=== PATIENT | male | born 1990 | race Caucasian/White ===

== ENCOUNTER 2017-01-18 19:47 | Emergency (ER) | payer OTHER | END 2017-01-18 22:07 | disposition home or self-care (01) | LOC: ER 19:47 | DX: S00.531A Contusion of lip, initial encounter (principal); S00.511A Abrasion of lip, initial encounter; W01.10XA Fall on same level from slipping, tripping and stumbling with subsequent striking against unspecified object, initial encounter; Y92.099 Unspecified place in other non-institutional residence as the place of occurrence of the external cause; K21.9 Gastro-esophageal reflux disease without esophagitis; E16.2 Hypoglycemia, unspecified; G40.909 Epilepsy, unspecified, not intractable, without status epilepticus; Q90.9 Down syndrome, unspecified; Z79.899 Other long term (current) drug therapy | CPT/HCPCS: 99282 ==